=== PATIENT | female | born 1980 | race Caucasian/White ===

== ENCOUNTER → 2020-10-19 | Outpatient (CLI) | payer OTHER ==
[2020-10-19 19:02] LABS: HGB 12.8 g/dL (12.0-15.0); MCH 29.3 pg (27.0-32.0); MCHC 32.8 g/dL (32.0-37.0); MCV 89.2 fL (80.0-97.0); Mean Platelet Volume 10.6 fL (9.5-12.2); Platelet Count 444 X 10*3/uL (140-440); RBC 4.37 X 10*6/uL (4.10-5.20); RDW 12.2 % (11.5-14.5); WBC 8.58 X 10*3/uL (4.50-10.00)
[2020-10-19 19:27] LABS: Folate, Serum 5.5 ng/mL
[2020-10-19 20:01] LABS: % Iron Saturation 8.2 (12.00-45.00); African American GFR (CKD) 126.5 (60.0-200.0); Albumin 4.7 g/dL (3.80-4.90); Albumin/Globulin Ratio 1.88 (1.60-3.17); Anion Gap 6.8 mmol/L (4.00-12.00); BUN/Creat Ratio 12.86 Ratio (12.00-20.00); Calcium 9.1 mg/dL (8.7-10.3); Carbon Dioxide 27.2 mmol/L (21.6-31.8); Chol/HDL Ratio 3.52; Ferritin 6.4 ng/mL (10.0-291.0); Globulin 2.5 g/dL (1.6-3.3); LDL Cholesterol,Calculated 83.4 mg/dL (0.0-131.0); Magnesium 1.8 mg/dL (1.5-2.4); Non-African American GFR(CKD) 109.1 (60.0-200.0); Phosphorus 3.4 mg/dL (2.4-5.1); Potassium 3.7 mmol/L (3.5-5.5); Total Bilirubin 0.3 mg/dL (0.3-1.2); Total Protein 7.2 g/dL (6.2-8.2); VLDL Calculation 27.6 mg/dL (5.00-40.00)
[2020-10-19 20:51] LABS: Hemoglobin A1C 5.2 % (4.0-6.0)
[2020-10-19 22:44] LABS: INR 0.96 (0.90-1.11); Partial Thromboplastin Time 25.5 sec (23.5-31.0); Prothrombin Time 10.5 sec (9.9-11.9)
[2020-10-20 14:08] LABS: Zinc, Serum 72 ug/dL (60-130)
[2020-10-20 14:11] LABS: Vitamin A 26 ug/dL (38-106)
[2020-10-21 07:14] LABS: Vit B1(Thiamine) 69 ug/L (38-122)
== END | disposition home or self-care (01) ==
LOC: LABWHC1 12:18
PROVIDERS: ATTEND Surgery Plastic and Reconstructive Surgery
DX: E55.9 Vitamin D deficiency, unspecified (principal); E66.01 Morbid (severe) obesity due to excess calories; E21.1 Secondary hyperparathyroidism, not elsewhere classified; E89.1 Postprocedural hypoinsulinemia; D50.9 Iron deficiency anemia, unspecified; N19 Unspecified kidney failure; K74.1 Hepatic sclerosis; K90.89 Other intestinal malabsorption; K50.90 Crohn's disease, unspecified, without complications
CPT/HCPCS: 36415; 80053; 80061; 82306; 82525; 82607; 82728; 82746; 83036; 83540; 83550; 83735; 83970; 84100; 84134; 84255; 84425; 84443; 84590; 84630; 85027; 85610; 85730

== ENCOUNTER → 2021-10-04 | Outpatient (CLI) | payer OTHER ==
--- NOTE | 2021-10-04 13:00 | XR ---
EXAMINATION TYPE: XR chest 2V DATE OF EXAM: 10/04/2021 COMPARISON: NONE HISTORY: Cough and pain on inspiration. TECHNIQUE: Frontal and lateral views of the chest are obtained. FINDINGS: There is no suspicious focal air space opacity, pleural effusion, or pneumothorax seen. T he cardiac silhouette size is within normal limits. The osseous structures are intact. IMPRESSION: No acute process.
== END | disposition home or self-care (01) ==
LOC: RADXRMAIN 12:32
PROVIDERS: ATTEND Family Medicine
DX: R05.3 Chronic cough (principal); R07.1 Chest pain on breathing
CPT/HCPCS: 71046

== ENCOUNTER → 2022-11-29 | Outpatient (CLI) | payer BC, OTHER ==
[2022-11-29 14:28] LABS: Basophils # (A) 0.04 X 10*3/uL (0.00-0.10); Basophils % (A) 0.5 %; Eosinophils # (A) 0.08 X 10*3/uL (0.04-0.35); Eosinophils % (A) 1.1 %; HCT 40.4 % (37.2-46.3); HGB 12.5 g/dL (12.0-15.0); Immature Grans, Automated 0.3 %; Lymphocytes # (A) 1.75 X 10*3/uL (0.90-5.00); Lymphocytes % (A) 23.2 %; MCH 26.4 pg (27.0-32.0); MCHC 30.9 g/dL (32.0-37.0); MCV 85.4 fL (80.0-97.0); Mean Platelet Volume 10.2 fL (9.5-12.2); Monocytes # (A) 0.67 X 10*3/uL (0.20-1.00); Monocytes % (A) 8.9 %; NRBC Per 100 WBC 0 /100 WBCS (0.0-0.0); Neutrophils # (A) 4.97 X 10*3/uL (1.80-7.70); Platelet Count 445 X 10*3/uL (140-440); RBC 4.73 X 10*6/uL (4.10-5.20); RDW 12.8 % (11.5-14.5); WBC 7.53 X 10*3/uL (4.50-10.00)
== END | disposition home or self-care (01) ==
LOC: LABPAT 10:10
PROVIDERS: ATTEND Obstetrics & Gynecology
DX: Z01.812 Encounter for preprocedural laboratory examination (principal); N92.0 Excessive and frequent menstruation with regular cycle; N94.6 Dysmenorrhea, unspecified
CPT/HCPCS: 85025

== ENCOUNTER 2022-12-18 06:19 | Day surgery (SDC) | payer BC, OTHER ==
[2022-12-12 12:50] VITALS: BMI 38.0
--- NOTE | 2022-12-14 10:41 | HP ---
HISTORY AND PHYSICAL H and P for surgery on December 18. HISTORY OF PRESENT ILLNESS: This is a 42-year-old, 3, para 2-0-1-2, whose partner has had a vasectomy. The patient presents with irregular menses occurring every 2 to 6 weeks apart lasting up to 7 days, heavy with clots. She has had an office endometrial ablation, which is revealing normal tissue. She is declining option of IUD or hormonal therapy and is requesting hysteroscopy and NovaSure endometrial ablation. PAST MEDICAL HISTORY: Significant for anemia, chronic constipation, fibromyalgia, malabsorption syndrome, menometrorrhagia, ovarian cysts, salivary gland calcifications, and vitamin D deficiency. PAST SURGICAL HISTORY: Adenoidectomy, cholecystectomy, gastric bypass, and excision of submandibular gland, benign. CURRENT MEDICATIONS: 1. Amitriptyline 25 mg pills orally at bedtime. 2. Vitamin B12 injections monthly. 3. Drisdol 50,000-unit capsules once weekly. 4. 45 mg iron extended-release tablet once daily. 5. Linzess 72 mcg tablets 30 minutes before first meal of the day. 6. Lubiprostone 8 mcg capsules twice a day with food. ALLERGIES: Include clindamycin and Levaquin, allergies unspecified. FAMILY HISTORY: Significant for diabetes, emphysema, heart disease, hydronephrosis, hypercholesterolemia, hypertension, obesity, and osteoporosis. REPRODUCTIVE HISTORY: Significant for 2 full-term vaginal deliveries, 1 spontaneous miscarriage. Her has had a vasectomy. SOCIAL HISTORY: The patient is a teacher in the [employer]. She has never been a smoker and denies alcohol or drug use. REVIEW OF SYSTEMS: Otherwise, negative. Specified as above. PHYSICAL EXAMINATION: GENERAL: This is a pleasant white female. HEENT: Negative. Good dentition. NECK: No thyromegaly. Trachea midline. CHEST: Clear to auscultation in all ramos anteriorly and posteriorly. BREASTS: Bilaterally symmetric to inspection. No skin dimpling, nipple discharge, or axillary adenopathy. CARDIAC: Reveals regular rate and rhythm with no murmur, click, or rub. VITAL SIGNS: The patient is 214 pounds, 5 feet 3 inches, BMI 37.6. Blood pressure 130/90. ABDOMEN: Moderately obese. Soft. No obvious organosplenomegaly. PELVIC: Multiparous. Pap smear up-to-date and normal. Uterus is anteverted, anteflexed, smooth, mobile, nontender. Adnexa are negative to palpation bilaterally, small and mobile, no cysts or masses. Anus is within normal limits, no hemorrhoids. Good sphincter tone. FIT negative stool. SKIN: Reveals no rashes, lesions, or areas of discoloration. NEUROLOGIC: The patient is alert and oriented grossly x3 with good judgment and insight. IMPRESSION: Menorrhagia and dysmenorrhea, requesting NovaSure ablation, declining intrauterine device use or control pills. PLAN: We will proceed with hysteroscopy, NovaSure endometrial ablation. The risks and benefits of surgery including the risks of anesthesia, bleeding, perforation or damage to the cervix or uterus or bladder all discussed. Risks of anesthesia, aspiration, nerve damage, even remotely all discussed. Questions all answered. Pamphlets given to the patient for her thorough review. We will proceed with NovaSure endometrial ablation along with hysteroscopy at [facility] on 12/18/2022. MMODL / IJN: [id number] /
[~2022-12-18 06:19] MED LIST: Pre Op ABX Message 1 EACH MISC MISCELLANE ONE
[2022-12-18] MEDS ORDERED: ONDANSETRON 4 MG/2 ML VIAL IVP ONE (06:37)
[2022-12-18] MEDS ORDERED: SCOPOLAMINE 1 MG/72 HR PATCH TRANSDERM ONE (06:37)
[2022-12-18] MEDS ORDERED: DEXAMETHASONE SOD PHOSPHATE 4 MG/ML 1 ML VIAL IV ONE (06:37)
[2022-12-18] MEDS ORDERED: MIDAZOLAM 2 MG/2 ML VIAL IV PRN (06:37)
[2022-12-18 06:51] VITALS: RESP 16
[2022-12-18] MEDS: LACTATED RINGERS 1,000 ML IV SCH ×2 (07:02→07:22)
[2022-12-18] MEDS ORDERED: DEXAMETHASONE SOD PHOSPHATE 4 MG/ML 1 ML VIAL IVP ONE (07:07)
[2022-12-18] MEDS ORDERED: PROPOFOL 10 MG/ML 20 ML VIAL IV ONE (07:18)
[2022-12-18] MEDS ORDERED: KETOROLAC 15 MG/ML 1 ML VIAL ONE (07:18)
[2022-12-18] MEDS ORDERED: fentaNYL (PF) 50 MCG/ML 2 ML AMP ONE (07:18)
[2022-12-18] MEDS ORDERED: MIDAZOLAM 2 MG/2 ML VIAL ONE (07:18)
[2022-12-18] MEDS ORDERED: LIDOCAINE 2% INJ 20 MG/ML (2 ML VIAL) ONE (07:18)
--- NOTE | 2022-12-18 07:53 | P.OP ---
Date of Procedure: 12/18/22 Preoperative Diagnosis: Menorrhagia, dysmenorrhea Postoperative Diagnosis: Same, essentially negative-appearing endometrial cavity Procedure(s) Performed: Hysteroscopy, NovaSure endometrial ablation Anesthesia: NUBIAA Surgeon: Suha Lema Estimated Blood Loss (ml): 10 IV fluids (ml): 350 Urine output (ml): 50 Pathology: none sent Condition: stable Operative Findings: Negative appearing endometrial cavity, no polyps fibroids septa or defects. Description of Procedure: Patient is brought to the operating suite where a general anesthetic is administered without difficulty. She's placed in the dorsal lithotomy position. The cervix, vagina, perineal bodies are all prepped and draped in the usual sterile fashion. Urine hCG is negative. The appropriate timeout is performed to assure proper patient and procedural identification. Bladder is drained for approximately 50 mL of clear yellow urine. Weighted speculum was placed into the vagina. Anterior lip of the cervix is grasped with an Allis clamp. Uterus sounds to a depth of 8 cm in the anteverted position. The cervix is gently and systematically dilated using Hanks dilators. Hysteroscope was placed and fluid is infused. Inspection of the cavity reveals it to contain abundant proliferative-type tissue, no polyps, fibroids, septa, or defects. Hysteroscope was removed. The NovaSure wand is placed and seated properly. Uterine length of 6.0 cm, width 2.7 cm is calibrated. The machine is enabled. For 52 seconds and a power of 89 W. the procedure is carried out. When the machine turns off the wand is reduced and removed. Hysteroscope was once again placed and the cavity appears to be uniformly blanched. All sponge needle and enhancement counts are correct. Patient is brought back to the recovery room in very good condition with stable vital signs including blood pressure 124/72, pulse 73, 100% O2 saturation. Toradol is given prior to leaving the operative suite. She will follow-up with me in the office in 2 weeks.
[2022-12-18 07:56] VITALS: TEMP 97.3
[2022-12-18] MEDS: HYDROmorphone 0.5 MG/0.5 ML SYRINGE IVP PRN ×3 (08:04→08:39)
[2022-12-18] MEDS ORDERED: ACETAMINOPHEN TAB 500 MG TAB ONE (09:22)
[2022-12-18 09:34] VITALS: BP 117/76; PULSE 96
== END 2022-12-18 09:59 | disposition home or self-care (01) ==
LOC: OR 06:19
PROVIDERS: ATTEND Obstetrics & Gynecology
DX: N92.0 Excessive and frequent menstruation with regular cycle (principal); N94.6 Dysmenorrhea, unspecified; D64.9 Anemia, unspecified; M79.7 Fibromyalgia; E55.9 Vitamin D deficiency, unspecified; K90.9 Intestinal malabsorption, unspecified; Z98.0 Intestinal bypass and anastomosis status; Z79.899 Other long term (current) drug therapy; Z88.1 Allergy status to other antibiotic agents; Z83.3 Family history of diabetes mellitus; Z82.49 Family history of ischemic heart disease and other diseases of the circulatory system; Z82.62 Family history of osteoporosis; Z83.49 Family history of other endocrine, nutritional and metabolic diseases; Z90.49 Acquired absence of other specified parts of digestive tract
CPT/HCPCS: 81025; 58563; J2250; J1100; J2405; J3010; J1885; J2704; J1170; J2001

== ENCOUNTER → 2023-09-29 | Outpatient (CLI) | payer BC, OTHER ==
[2023-09-29 13:06] LABS: Basophils # (A) 0.04 X 10*3/uL (0.00-0.10); Basophils % (A) 0.8 %; Eosinophils # (A) 0.09 X 10*3/uL (0.04-0.35); Eosinophils % (A) 1.7 %; HCT 38.7 % (37.2-46.3); HGB 12.2 g/dL (12.0-15.0); Lymphocytes # (A) 0.99 X 10*3/uL (0.90-5.00); Lymphocytes % (A) 18.6 %; MCH 26.1 pg (27.0-32.0); MCHC 31.5 g/dL (32.0-37.0); MCV 82.9 FL (80.0-97.0); Mean Platelet Volume 10.4 FL (9.5-12.2); Monocytes # (A) 0.37 X 10*3/uL (0.20-1.00); NRBC Per 100 WBC 0 X 10*3/uL (0.00-0.01); Neutrophils # (A) 3.81 X 10*3/uL (1.80-7.70); Neutrophils % (A) 71.7 %; Platelet Count 436 X 10*3/uL (140-440); RBC 4.67 X 10*6/uL (4.10-5.20); WBC 5.31 X 10*3/uL (4.50-10.00)
[2023-09-29 13:38] LABS: Chol/HDL Ratio 3.25 Ratio
[2023-09-29 13:39] LABS: ALT 12 U/L (8-44); AST 15 U/L (13-35); Albumin/Globulin Ratio 1.38 Ratio (1.60-3.17); Alkaline Phosphatase 145 U/L (41-126); BUN/Creat Ratio 8.57 Ratio (12.00-20.00); Calcium 9.3 mg/dL (8.7-10.3); Carbon Dioxide 23.1 mmol/L (21.6-31.8); Chloride 105 mmol/L (96-109); Ferritin 12.7 ng/mL (10.0-291.0); Globulin 2.9 g/dL (1.6-3.3); Glucose 98 mg/dL (70-110); LDL Cholesterol,Calculated 98.9 mg/dL (0.0-131.0); Potassium 4.6 mmol/L (3.5-5.5); Sodium 140 mmol/L (135-145); T4, Free (Free Thyroxine) 0.87 ng/dL (0.80-1.80); Total Bilirubin 0.6 mg/dL (0.3-1.2); Total Protein 6.9 g/dL (6.2-8.2)
[2023-09-29 14:00] LABS: Insulin Level 6.8 mIU/mL (3.0-25.0)
== END | disposition home or self-care (01) ==
LOC: LABWHC1 09:05
PROVIDERS: ATTEND Family Medicine
DX: Z00.00 Encounter for general adult medical examination without abnormal findings (principal); R63.5 Abnormal weight gain; R53.82 Chronic fatigue, unspecified; Z98.84 Bariatric surgery status
CPT/HCPCS: 36415; 80053; 80061; 82306; 82607; 82672; 82728; 82746; 83036; 83525; 84403; 84439; 84443; 85025; 86800

== ENCOUNTER → 2023-10-11 | Outpatient (CLI) | payer BC, OTHER ==
--- NOTE | 2023-10-15 08:30 | MM ---
Reason for Exam: Screening (asymptomatic). Last screening mammogram was performed 12 month(s) ago. Patient History: Menarche at age 15. First Full-Term at age 30. Risk Values: Peggy 5 year model risk: 0.7%. NCI Lifetime model risk: 10.0%. Prior Study Comparison: 10/06/2022 Bilateral MG 3D screening mammo w/cad, [facility]. Tissue Density: There are scattered fibroglandular densities. Findings: Analyzed By CAD. There is no suspicious group of microcalcifications or new suspicious mass. Overall Assessment: Negative, BI-RAD 1 Management: Screening Mammogram of both breasts in [address] [facility] will attempt to contact patient to return for supplemental views and ultrasound if indicated. Patient should continue monthly self-breast exams. A clinical breast exam by your physician is recommended on an annual basis. This exam should not preclude additional follow-up of suspicious palpable abnormalities. Note on Peggy scores and lifetime risk: 1. A Peggy score greater than 3% is considered moderate risk. If this is the case, consider specialist referral to assess eligibility for a risk reducing agent. 2. If overall lifetime risk for the development of breast cancer is 20% or higher, the patient may qualify for future screening with alternating mammogram and breast MRI. Electronically signed and approved by: Ang Rodriguez DO
== END | disposition home or self-care (01) ==
LOC: RADMAMWWP 16:26
PROVIDERS: ATTEND Family Medicine
DX: Z12.31 Encounter for screening mammogram for malignant neoplasm of breast (principal)
CPT/HCPCS: 77063; 77067

== ENCOUNTER 2023-10-27 20:41 | Emergency (ER) | payer BC, OTHER ==
[2023-10-27 21:02] VITALS: TEMP 98.7
--- NOTE | 2023-10-27 21:14 | ED ---
Back Pain HPI - General Chief Complaint: Back Pain/Injury Stated Complaint: RIGHT LOWER BACK PAIN Time Seen by Provider: 10/27/23 20:58 Source: patient Limitations: no limitations - History of Present Illness Initial Comments: 43-year-old female presenting with chief complaint of lower back pain. Pain started yesterday, patient thought that she had "tweaked her back". She had no distinct injury or trauma. She states that this evening she had worsening pain. She admits to radiation down the leg. Pain is affected by position and worse with movement or weightbearing. no loss of bowel or bladder control or saddle paresthesia. She does admit to some nausea when the pain is at its worst. No vomiting. No fevers. No dysuria, hematuria, urgency, frequency, abdominal pain . No chest pain or difficulty breathing. She has tried taking meloxicam once today. - Related Data Home Medications Medication Instructions Recorded Confirmed Amitriptyline HCl 25 mg PO HS 12/12/22 10/25/23 Cyanocobalamin [Vitamin B-12 1,000 mcg SQ QMONTHLY 12/12/22 10/25/23 Injection] DULoxetine HCL [Cymbalta] 20 mg PO HS 12/12/22 10/25/23 Previous Rx's Medication Instructions Recorded Cyclobenzaprine [Flexeril] 10 mg PO TID PRN #15 tab 10/27/23 Allergies Allergy/AdvReac Type Severity Reaction Status Date / Time clindamycin Allergy Dyspnea Verified 10/27/23 20:50 levofloxacin [From Levaquin] Allergy Rash/Hives Verified 10/27/23 20:50 Review of Systems ROS Statement: Those systems with pertinent positive or pertinent negative responses have been documented in the HPI. ROS Other: All systems not noted in ROS Statement are negative. Past Medical History Past Medical History: Diabetes Mellitus, Fibromyalgia Additional Past Medical History / Comment(s): recent tooth infection, antibiotic treatment finished 10/18/23 History of Any Multi-Drug Resistant Organisms: None Reported Past Surgical History: Appendectomy, Bariatric Surgery, Cholecystectomy Additional Past Surgical History / Comment(s): Gastric Bypass 2008, bilateral submandibular glands removed, uterine repair. Past Anesthesia/Blood Transfusion Reactions: No Reported Reaction Past Psychological History: No Psychological Hx Reported Smoking Status: Never smoker Past Alcohol Use History: None Reported Past Drug Use History: None Reported - Past Family History Father Family Medical History: Deep Vein Thrombosis (DVT) General Exam Limitations: no limitations General appearance: alert, in no apparent distress Head exam: Present: atraumatic, normocephalic Eye exam: Present: normal appearance Neck exam: Present: normal inspection Respiratory exam: Absent: respiratory distress Back exam: Present: normal inspection, muscle spasm Neurological exam: Present: alert, oriented X3 Psychiatric exam: Present: normal affect, normal mood Skin exam: Present: warm, dry Course Vital Signs 10/27/23 10/27/23 20:49 23:33 Temperature 98.7 F Pulse Rate 101 H 91 Respiratory 20 18 Rate Blood Pressure 165/108 140/80 O2 Sat by Pulse 100 99 Oximetry Medical Decision Making - Medical Decision Making Was pt. sent in by a medical professional or institution ([facility], SAP BI ARCHITECT, urgent care, hospital, or long-term...) When possible be specific @ -No Did you speak to anyone other than the patient for history (EMS, parent, family, police, friend...)? What history was obtained from this source @ -No Did you review nursing and triage notes (agree or disagree)? Why? @ -I reviewed and agree with nursing and triage notes Were old charts reviewed (outside hosp., previous admission, EMS record, old EKG, old radiological studies, urgent care reports/EKG's, long-term records)? Report findings @ -No old charts were reviewed Differential Diagnosis (chest pain, altered mental status, abdominal pain women, abdominal pain men, vaginal bleeding, weakness, fever, dyspnea, syncope, headache, dizziness, GI bleed, back pain, seizure, CVA, palpatations, mental health, musculoskeletal)? @ - MDM Differential Back Pain: Strain, zoster, cauda equina syndrome, epidural abscess, vertebral osteomyelitis, discitis, fracture, subluxation, disc herniation, DJD, spinal stenosis, dissection, AAA, pancreatitis, peptic ulcer disease, pyelonephritis, kidney stone this is not meant to be an all-inclusive list. EKG interpreted by me (3pts min.). @ -As above X-rays interpreted by me (1pt min.). @ -None done CT interpreted by me (1pt min.). @ -None done U/S interpreted by me (1pt. min.). @ -None done What testing was considered but not performed or refused? (CT, X-rays, U/S, labs)? Why? @ -X-ray consider, however there was no injury or trauma, making possibility of an acute osseous process unlikely What meds were considered but not given or refused? Why? @ -None Did you discuss the management of the patient with other professionals (professionals i.e. , PA, SAP BI ARCHITECT, lab, RT, psych nurse, social media specialist, yard cleaner, teacher, postal sorting officer, manager of change)? Give summary @ -No Was smoking cessation discussed for >3mins.? @ -No Was critical care preformed (if so, how long)? @ -No Were there social determinants of health that impacted care today? How? (Homelessness, low income, unemployed, alcoholism, drug addiction, transportation, low edu. Level, literacy, decrease access to med. care, [place] [facility], rehab)? @ -No Was there de-escalation of care discussed even if they declined (Discuss DNR or withdrawal of care, Hospice)? DNR status @ -No What co-morbidities impacted this encounter? (DM, HTN, Smoking, COPD, CAD, Cancer, CVA, ARF, Chemo, Hep., AIDS, mental health diagnosis, sleep apnea, morbid obesity)? @ -None Was patient admitted / discharged? Hospital course, mention meds given and route, prescriptions, significant lab abnormalities, going to OR and other pertinent info. @ -43-year-old female presenting with chief complaint of lower back pain. No red flag features. History and physical exam are conducted. Patient is treated with Toradol, Decadron, Norflex, and lidocaine patch. On reassessment she reports continued pain. She is given 1 mg Dilaudid, on reassessment she reports that her pain is significantly improved. She would like to be discharged home. Follow-up with PCP. Report back to ER with any new or worsening symptoms. Discussed return parameters and answered all questions. Patient conveyed verbal understanding and agreed to the plan. I discussed this case in detail with my attending Dr. Malik Undiagnosed new problem with uncertain prognosis? @ -No Drug Therapy requiring intensive monitoring for toxicity (Heparin, Nitro, Insulin, Cardizem)? @ -No Were any procedures done? @ -No Diagnosis/symptom? @ -Low back pain Acute, or Chronic, or Acute on Chronic? @ -Acute Uncomplicated (without systemic symptoms) or Complicated (systemic symptoms)? @ -Uncomplicated Side effects of treatment? @ -No Exacerbation, Progression, or Severe Exacerbation? @ -No Poses a threat to life or bodily function? How? (Chest pain, [place], [place], pneumonia, PE, COPD, DKA, ARF, appy, cholecystitis, CVA, Diverticulitis, Homicidal, Suicidal, threat to staff... and all critical care pts) @ -No Disposition Clinical Impression: Mechanical back pain Disposition: HOME SELF-CARE Condition: Good Instructions (If sedation given, give patient instructions): Acute Low Back Pain (ED) Additional Instructions: Follow-up with PCP. Report back to ER with any new or worsening symptoms. Take Motrin and Tylenol as needed for pain control. Take cyclobenzaprine as prescribed, may cause drowsiness so do not take before driving or operating heavy machinery Prescriptions: Cyclobenzaprine [Flexeril] 10 mg PO TID PRN #15 tab PRN Reason: spasms Is patient prescribed a controlled substance at d/c from ED?: No Referrals: Aissatou Dorsey NPC [REFERRING] - 1-2 days Time of Disposition: 23:53
[2023-10-27] MEDS: ORPHENADRINE 30 MG/ML 2 ML VIAL IM STA (21:38)
[2023-10-27] MEDS: LIDOCAINE 4% PATCH TOPICAL ONE (21:41)
[2023-10-27] MEDS: KETOROLAC 15 MG/ML 1 ML VIAL IM STA (21:43)
[2023-10-27] MEDS: DEXAMETHASONE SOD PHOSPHATE 10 MG/ML 1 ML VIAL IM STA (21:45)
[2023-10-27] MEDS: HYDROmorphone 1 MG/ML 1 ML SYRINGE IM STA (23:10)
[2023-10-28 00:16] VITALS: BP 140/80; PULSE 91; RESP 18
== END 2023-10-28 00:06 | disposition home or self-care (01) ==
LOC: EC 20:41
DX: M54.50 Low back pain, unspecified (principal); E11.9 Type 2 diabetes mellitus without complications; Z88.1 Allergy status to other antibiotic agents; Z88.8 Allergy status to other drugs, medicaments and biological substances; Z90.49 Acquired absence of other specified parts of digestive tract
CPT/HCPCS: 99283; 96372 ×4; J1100; J2360; J1170; J1885

== ENCOUNTER → 2023-10-31 | Outpatient (CLI) | payer BC, OTHER ==
--- NOTE | 2023-10-31 16:48 | XR ---
EXAMINATION TYPE: XR lumbar spine 2 or 3V DATE OF EXAM: 10/31/2023 COMPARISON: None HISTORY: Pain, lumbago TECHNIQUE: 3 view lumbar spine FINDINGS: There are 5 lumbar-type vertebral bodies. Pedicles are intact. Disc heights are preserved. Vertebral body heights are preserved. Alignment is normal. IMPRESSION: 1. Unremarkable 3 view lumbar spine. 2. MRI can be performed if additional evaluation for radicular symptoms would be of benefit.
== END | disposition home or self-care (01) ==
LOC: RADXRMAIN 15:19
PROVIDERS: ATTEND Nurse Practitioner Family
DX: M54.41 Lumbago with sciatica, right side (principal)
CPT/HCPCS: 72100

== ENCOUNTER → 2023-11-22 | Outpatient (CLI) | payer BC, OTHER ==
--- NOTE | 2023-11-23 04:20 | MR ---
EXAMINATION TYPE: MR lumbar spine wo con DATE OF EXAM: 11/22/2023 COMPARISON: Outside lumbar spine x-ray October 31, 2023 HISTORY: Low back pain, right sided radiculopathy TECHNIQUE: Multiplanar, multisequence imaging of the lumbar spine is performed without IV contrast. FINDINGS: Sagittal images of the lumbar spine show vertebral body heights and alignment to appear sat isfactory. There is disc desiccation at L4-L5 level. The intervertebral discs otherwise demonstrate n ormal heights and hydration. The conus medullaris is normal in position and signal ending superior L 1 level. The bone marrow signal intensity is within normal limits. Axial images at L4-L5 level shows a tiny central disc protrusion and right paracentral annular tear b ut spinal canal is preserved and bilateral neural foramina are patent. Remainder lumbar levels within normal limits. Paraspinal muscle bulk is maintained. IMPRESSION: Early degenerative changes at L4-L5 level as detailed above. No significant findings to a ccount for patient's right-sided radiculopathy type symptoms.
== END | disposition home or self-care (01) ==
LOC: RADMRIMAIN 16:40
PROVIDERS: ATTEND Family Medicine
DX: M47.26 Other spondylosis with radiculopathy, lumbar region (principal)
CPT/HCPCS: 72148

== ENCOUNTER 2023-12-04 08:45 | Day surgery (SDC) | payer BC, OTHER ==
[~2023-12-04 08:45] MED LIST changes: +LACTATED RINGERS 1,000 ML IV SCH; -Pre Op ABX Message 1 EACH MISC MISCELLANE ONE
[2023-12-04 09:25] VITALS: TEMP 98.7
[2023-12-04] MEDS: IV FLUID CONTINUATION 1,000 ML IV ONE (09:29)
[2023-12-04 09:32] LABS: Glucose,Whole Blood 91 mg/dL (70-110)
[2023-12-04] MEDS ORDERED: PROPOFOL 10 MG/ML 20 ML VIAL IV ONE (10:00)
--- NOTE | 2023-12-04 10:02 | P.GSHP ---
History of Present Illness H&P Date: 12/04/23 Chief Complaint: GI bleed 43-year-old female describes intermittent bright red blood and maroon-colored stools with some mucus over the last few years. Increasing over the last few months. No real pain. No family history of inflammatory bowel disease. No family history of colon cancer. Patient does have family history of diverticulitis. Past Medical History Past Medical History: Diabetes Mellitus, Fibromyalgia Additional Past Medical History / Comment(s): pre diabetic. just completed course of metformin for 30 days. IBS . some blood in stools ( dark and bright). arthritis to hips. History of Any Multi-Drug Resistant Organisms: None Reported Past Surgical History: Appendectomy, Bariatric Surgery, Cholecystectomy, Uterine Ablation Additional Past Surgical History / Comment(s): Gastric Bypass 2008, bilateral submandibular glands removed, uterine repair. Past Anesthesia/Blood Transfusion Reactions: No Reported Reaction Smoking Status: Never smoker - Past Family History Father Family Medical History: Deep Vein Thrombosis (DVT) Additional Family Medical History / Comment(s): diverticulitis. Mother Additional Family Medical History / Comment(s): diverticulitis- ruptured. Medications and Allergies Home Medications Medication Instructions Recorded Confirmed Type Amitriptyline HCl 25 mg PO HS 12/12/22 12/04/23 History Cyanocobalamin [Vitamin B-12 1,000 mcg SQ QMONTHLY 12/12/22 12/04/23 History Injection] DULoxetine HCL [Cymbalta] 20 mg PO HS 12/12/22 12/04/23 History Linaclotide [Linzess] 72 mcg PO DAILY 11/30/23 12/04/23 History Meloxicam [Mobic] 15 mg PO DAILY PRN 11/30/23 12/04/23 History Unk Motrin 1 tab PO DIRECTED PRN 11/30/23 12/04/23 History Unk Multi Vitamin 1 tab PO DAILY 11/30/23 12/04/23 History metFORMIN HCL [Metformin HCl] 500 mg PO AC-SUPPER 11/30/23 12/04/23 History Allergies Allergy/AdvReac Type Severity Reaction Status Date / Time clindamycin Allergy Dyspnea Verified 12/04/23 09:10 levofloxacin [From Levaquin] Allergy Rash/Hives Verified 12/04/23 09:10 Surgical - Exam Vital Signs Temp Pulse Resp BP Pulse Ox 98.7 F 83 17 121/73 100 12/04/23 09:10 12/04/23 09:10 12/04/23 09:10 12/04/23 09:10 12/04/23 09:10 Physical exam: General: Well-developed, well-nourished HEENT: Normocephalic, sclerae nonicteric Abdomen: Nontender, nondistended Extremities: No edema Neuro: Alert and oriented Assessment and Plan (1) GI bleed Narrative/Plan: Will proceed with colonoscopy at this time. Current Visit: Yes Status: Acute Code(s): K92.2 - GASTROINTESTINAL HEMORRHAGE, UNSPECIFIED SNOMED Code(s): 58722922
--- NOTE | 2023-12-04 10:19 | P.PCN ---
Date of Procedure: 12/04/23 Procedure(s) Performed: PREOPERATIVE DIAGNOSIS: GI bleeding POSTOPERATIVE DIAGNOSIS: Normal exam PROCEDURE: Colonoscopy ANESTHESIA: MAC SURGEON: Supa Erickson M.D. SPECIMENS: None ENDOSCOPIC PROCEDURE: The patient was placed on the endoscopy table in the left decubitus position. The Olympus colonoscope was inserted into the anus and passed under direct visualization to the base of the cecum. The appendiceal orifice was visualized. From that point the scope was slowly withdrawn inspecting all surfaces carefully. There were no neoplastic inflammatory or polypoid lesions throughout the cecum, ascending, transverse, descending, sigmoid and rectum. There was no visible diverticulosis noted. Retroflexion at the anus was normal. Digital rectal examination was normal. The patient was taken to the recovery room in stable condition per anesthesia guidelines. RECOMMENDATIONS: No signs of bleeding at this time. Resume diet. Follow-up colonoscopy age 51.
[2023-12-04 10:44] VITALS: BP 114/78; PULSE 81; RESP 18
== END 2023-12-04 11:00 | disposition home or self-care (01) ==
LOC: ORWHC2ENDO 08:45
PROVIDERS: ATTEND Surgery
DX: K92.1 Melena (principal); Z83.79 Family history of other diseases of the digestive system; E11.9 Type 2 diabetes mellitus without complications; M79.7 Fibromyalgia; G89.29 Other chronic pain; Z90.49 Acquired absence of other specified parts of digestive tract; Z98.84 Bariatric surgery status; Z88.1 Allergy status to other antibiotic agents; Z79.899 Other long term (current) drug therapy; Z79.84 Long term (current) use of oral hypoglycemic drugs
CPT/HCPCS: 81025; 45378; J2704

== ENCOUNTER → 2024-02-06 | Outpatient (CLI) | payer BC, OTHER ==
[2024-02-06 16:44] VITALS: BP 120/86; PULSE 103; RESP 16; TEMP 98.5; BMI 41.4
--- NOTE | 2024-02-06 17:20 | P.HPBAR ---
Bariatric H&P - History & Physicial H&P Date: 02/06/24 History & Physicial: Visit/CC: Transfer of Care Patient initial contact: Initial weight: 155.582 kg Initial weight in pounds: 343.00 Height: 5 ft 3 in Initial BMI: 60.7 Last weight: Current weight: 106.141 kg Current weight in pounds: 234.00 Current BMI: 41.4 [place] body weight (based on NIH guidelines): 52.163 kg Excess body weight loss: 47.8% The patient is a 43 year-old F who presents for Bariatric Assessment. She is now prediabetic. She is on Metformin. She was on mobic. Her highest weight is 343 pounds. Lowest 140 pounds. 200 pounds weight loss for gastric bypass in 1 year. She has gained 100 pounds. She gained weight with her daughter. BMI 60.7. Get labs. Food get stuck more than 3 years. She has epigastric pain. Food journal advised. Gallbladder is gone! Past Medical History Past Medical History: Diabetes Mellitus, Fibromyalgia Additional Past Medical History / Comment(s): recent tooth infection, antibiotic treatment finished 10/18/23 History of Any Multi-Drug Resistant Organisms: None Reported Past Surgical History: Appendectomy, Bariatric Surgery, Cholecystectomy Additional Past Surgical History / Comment(s): Gastric Bypass 2008, bilateral submandibular glands removed, uterine repair. Past Anesthesia/Blood Transfusion Reactions: No Reported Reaction Past Psychological History: No Psychological Hx Reported Smoking Status: Never smoker Past Alcohol Use History: None Reported Past Drug Use History: None Reported - Past Family History Father Family Medical History: Deep Vein Thrombosis (DVT) Surgical - Exam Vital Signs Temp Pulse Resp BP 98.5 F 103 H 16 120/86 02/06/24 16:41 02/06/24 16:41 02/06/24 16:41 02/06/24 16:41 Bariatric Checklist Checklist: Plan: Checklist: EGD: 1. Hiatal hernia: 2. H. Pylori: HgbA1c: Vitamin D: Smoking: Primary care physician referral: Dr. Dorsey Psychiatry clearance: Cardiology clearance: Sleep study: Diet journal: VTE risk score: VTE risk level: Rehab needs at discharge:
== END ==
LOC: BARWHC3 15:44
PROVIDERS: ATTEND Surgery Plastic and Reconstructive Surgery
DX: E66.01 Morbid (severe) obesity due to excess calories (principal); Z98.84 Bariatric surgery status; Z90.3 Acquired absence of stomach [part of]; R73.03 Prediabetes; R10.9 Unspecified abdominal pain; Z79.84 Long term (current) use of oral hypoglycemic drugs; Z88.1 Allergy status to other antibiotic agents; Z68.42 Body mass index [BMI] 45.0-49.9, adult
CPT/HCPCS: 99202

== ENCOUNTER → 2024-02-15 | Outpatient (CLI) | payer BC, OTHER ==
[2024-02-15 08:39] LABS: INR 0.9 (<1.2); Partial Thromboplastin Time 23.5 sec (22.0-30.0)
[2024-02-15 10:30] LABS: HCT 40.1 % (37.2-46.3); HGB 13.4 g/dL (12.0-15.0); MCH 29.8 pg (27.0-32.0); MCHC 33.4 g/dL (32.0-37.0); MCV 89.1 FL (80.0-97.0); Mean Platelet Volume 10.2 FL (9.5-12.2); NRBC Per 100 WBC 0 X 10*3/uL (0.00-0.01); Platelet Count 371 X 10*3/uL (140-440); RDW 12.6 % (11.5-14.5); WBC 8.39 X 10*3/uL (4.50-10.00)
[2024-02-15 17:24] LABS: Prealbumin 16.5 mg/dL (18.0-42.0)
[2024-02-15 17:29] LABS: % Iron Saturation 26.83 (12.00-45.00); Chol/HDL Ratio 3.17 Ratio; Iron 88 UG/DL (50-170); Magnesium 1.9 mg/dL (1.5-2.4); Phosphorus 4.1 mg/dL (2.4-5.1); Total Iron Binding Capacity 328 UG/DL (228-460); VLDL Calculation 15.96 mg/dL (5.00-40.00)
[2024-02-15 17:30] LABS: ALT 11 U/L (8-44); AST 15 U/L (13-35); Albumin 4.1 g/dL (3.8-4.9); Albumin/Globulin Ratio 1.58 Ratio (1.60-3.17); Alkaline Phosphatase 120 U/L (41-126); BUN/Creat Ratio 13.14 Ratio (12.00-20.00); Blood Urea Nitrogen 9.2 mg/dL (9.0-27.0); Carbon Dioxide 23.9 mmol/L (21.6-31.8); Chloride 105 mmol/L (96-109); Ferritin 78.3 ng/mL (10.0-291.0); Globulin 2.6 g/dL (1.6-3.3); Glucose 93 mg/dL (70-110); Potassium 4.1 mmol/L (3.5-5.5); Sodium 140 mmol/L (135-145); Total Bilirubin 0.4 mg/dL (0.3-1.2); Total Protein 6.7 g/dL (6.2-8.2)
== END | disposition home or self-care (01) ==
LOC: LABWHC1 07:39
PROVIDERS: ATTEND Surgery Plastic and Reconstructive Surgery
DX: E66.01 Morbid (severe) obesity due to excess calories (principal); D50.8 Other iron deficiency anemias; K91.2 Postsurgical malabsorption, not elsewhere classified; E44.0 Moderate protein-calorie malnutrition; E44.1 Mild protein-calorie malnutrition; E45 Retarded development following protein-calorie malnutrition; E55.9 Vitamin D deficiency, unspecified; K74.1 Hepatic sclerosis; N19 Unspecified kidney failure; T56.894A Toxic effect of other metals, undetermined, initial encounter; K50.90 Crohn's disease, unspecified, without complications
CPT/HCPCS: 36415; 80053; 80061; 80307; 80323; 82306; 82525; 82607; 82728; 82746; 83036; 83540; 83550; 83735; 83970; 84100; 84134; 84255; 84425; 84443; 84590; 84630; 85027; 85610; 85730

== ENCOUNTER 2024-03-17 08:01 | Day surgery (SDC) | payer BC, OTHER ==
[2024-03-13 10:30] VITALS: BMI 40.7
--- NOTE | 2024-03-17 07:58 | P.GSHP ---
History of Present Illness H&P Date: 03/17/24 CHIEF COMPLAINT: GERD HISTORY OF PRESENT ILLNESS: The patient is a 43-year-old female who presents reports gastroesophageal reflux disease. Upper endoscopy was offered for further evaluation and management. PAST MEDICAL HISTORY: Please see list. PAST SURGICAL HISTORY: Please see list. MEDICATIONS: Please see list. ALLERGIES: Please see list. SOCIAL HISTORY: No illicit drug use FAMILY HISTORY: No reports of Crohn disease or ulcerative colitis. REVIEW OF ORGAN SYSTEMS: CONSTITUTIONAL: No reports of fevers or chills. GI: Denies any blood in stools or constipation. PHYSICAL EXAM: VITAL SIGNS: Stable GENERAL: Well-developed and pleasant in no acute distress. HEENT: No scleral icterus. Extraocular movements grossly intact. Moist buccal mucosa. NECK: Supple without lymphadenopathy. CHEST: Unlabored respirations. Equal bilateral excursions. CARDIOVASCULAR: Regular rate and rhythm. Distal 2+ pulses. ABDOMEN: Soft, nondistended. MUSCULOSKELETAL: No clubbing, cyanosis, or edema. ASSESSMENT: 1. Gastroesophageal reflux disease PLAN: 1. Recommend proceeding with an upper endoscopy Past Medical History Past Medical History: Fibromyalgia Additional Past Medical History / Comment(s): difficulty swallowing History of Any Multi-Drug Resistant Organisms: None Reported Past Surgical History: Appendectomy, Bariatric Surgery, Cholecystectomy, Uterine Ablation Additional Past Surgical History / Comment(s): Gastric Bypass 2008, bilateral submandibular glands removed, uterine repair. Past Anesthesia/Blood Transfusion Reactions: No Reported Reaction Additional Past Anesthesia/Blood Transfusion Reaction / Comment(s): no blood transfusion reaction Smoking Status: Never smoker - Past Family History Father Family Medical History: Deep Vein Thrombosis (DVT) Medications and Allergies Home Medications Medication Instructions Recorded Confirmed Type Amitriptyline HCl 25 mg PO HS 12/12/22 03/13/24 History Cyanocobalamin [Vitamin B-12 1,000 mcg SQ QMONTHLY 12/12/22 03/13/24 History Injection] DULoxetine HCL [Cymbalta] 20 mg PO HS 12/12/22 03/13/24 History Linaclotide [Linzess] 72 mcg PO HS 11/30/23 03/13/24 History Meloxicam [Mobic] 15 mg PO DAILY PRN 11/30/23 03/13/24 History Unk Motrin 1 tab PO DIRECTED PRN 03/29/24 07/11/24 History Unk Multi Vitamin 1 tab PO DAILY 11/30/23 03/13/24 History Allergies Allergy/AdvReac Type Severity Reaction Status Date / Time clindamycin Allergy Dyspnea Verified 03/13/24 10:25 levofloxacin [From Levaquin] Allergy Rash/Hives Verified 03/13/24 10:25
[~2024-03-17 08:01] MED LIST changes: -LACTATED RINGERS 1,000 ML IV SCH; +LIDOCAINE 1% (10MG/ML) FOR IV START INTRADERMA PRN
[2024-03-17] MEDS: IV FLUID CONTINUATION 1,000 ML IV ONE (08:12)
[2024-03-17 08:30] VITALS: TEMP 98
[2024-03-17] MEDS: LACTATED RINGERS 1,000 ML IV SCH (08:31)
[2024-03-17] MEDS ORDERED: PROPOFOL 10 MG/ML 20 ML VIAL IV ONE (08:55)
--- NOTE | 2024-03-17 09:14 | P.PCN ---
Date of Procedure: 03/17/24 Description of Procedure: PREOPERATIVE DIAGNOSES: 1. Gastrointestinal bleeding 2. Epigastric abdominal pain. 3. History of Victorina-en-Y gastric bypass 4. Mobic and ibuprofen use POSTOPERATIVE DIAGNOSES: 1. History of gastrointestinal bleeding 2. Epigastric abdominal pain. 3. History of esophagojejunostomy 4. Adverse event from Mobic and ibuprofen PROCEDURE PERFORMED: Esophagojejunoscopy with biopsies on the jejunum and esophagus SURGEON: Suha Bourgeois MD ANESTHESIA: MAC. INDICATIONS: The patient is a 43-year-old female with prior history of Victorina-en-Y gastric bypass performed at an outside institution. She presents epigastric pain including gastrointestinal bleeding. With her h istory of Victorina-en-Y gastric bypass, upper endoscopy was offered for further evaluation and management. Benefits and risks described. Informed consent was obtained. DESCRIPTION: Patient was brought to the endoscopy suite and laid in the left lateral decubitus position. After adequate IV sedation, a bite block was placed. An Olympus gastroscope was passed along the posterior oropharynx down to the distal esophagus where the squamocolumnar junction was found at approximately 35 cm from the incisors. The gastric pouch was absent with immediate entry into the anastomosis of the esophagojejunostomy. Biopsies obtained along the esophagus and jejunum as the gastric pouch was absent confirming a esophagojejunostomy. GI tract was decompressed. The patient tolerated procedure well. FINDINGS: 1. No acute anastomotic bleeding 2. No foreign body found along the anastomosis. 3. No elongated jejunal blind pouch. 4. Squamocolumnar junction at 35 cm from the incisors. 5. Anastomosis at 40 cm from the incisors. 6. Absent gastric pouch consistent with esophagojejunostomy PLAN: 1. Avoid all NSAIDs due to recent GI bleed Plan - Discharge Summary Discharge Rx Participant: No New Discharge Prescriptions: Continue DULoxetine HCL [Cymbalta] 20 mg PO HS Cyanocobalamin [Vitamin B-12 Injection] 1,000 mcg SQ QMONTHLY Amitriptyline HCl 25 mg PO HS Unk Multi Vitamin 1 tab PO DAILY Linaclotide [Linzess] 72 mcg PO HS Discontinued Meloxicam [Mobic] 15 mg PO DAILY PRN PRN Reason: Pain Unk Motrin 1 tab PO DIRECTED PRN PRN Reason: Pain Discharge Medication List Amitriptyline HCl 25 mg PO HS 12/12/22 [History] Cyanocobalamin [Vitamin B-12 Injection] 1,000 mcg SQ QMONTHLY 12/12/22 [History] DULoxetine HCL [Cymbalta] 20 mg PO HS 12/12/22 [History] Linaclotide [Linzess] 72 mcg PO HS 11/30/23 [History] Unk Multi Vitamin 1 tab PO DAILY 11/30/23 [History] Follow up Appointment(s)/Ref[facility] [place] [facility] - 03/26/24 Patient Instructions/Handouts: Gastrointestinal Bleeding (DC), Victorina-en-Y Gastric Bypass (DC) Activity/Diet/Wound Care/Special Instructions: Avoid nonsteroidal anti-inflammatory drugs including Motrin, Mobic, Celebrex, as pirin, ibuprofen, naproxen, Aleve, etc. Discharge Disposition: HOME SELF-CARE
[2024-03-17 09:28] VITALS: PULSE 78
[2024-03-17 09:39] VITALS: BP 110/65; RESP 18
== END 2024-03-17 10:01 | disposition home or self-care (01) ==
LOC: ORWHC2ENDO 08:01
PROVIDERS: ATTEND Surgery Plastic and Reconstructive Surgery
DX: K21.01 Gastro-esophageal reflux disease with esophagitis, with bleeding (principal); M79.7 Fibromyalgia; Z88.1 Allergy status to other antibiotic agents; Z90.49 Acquired absence of other specified parts of digestive tract; Z98.84 Bariatric surgery status; Z79.1 Long term (current) use of non-steroidal anti-inflammatories (NSAID); Z79.899 Other long term (current) drug therapy
CPT/HCPCS: 81025; 88305; 43239; J2704

== ENCOUNTER → 2024-05-07 | Outpatient (CLI) | payer BC, OTHER ==
[2024-05-07 09:37] LABS: INR 0.9 (<1.2); Partial Thromboplastin Time 24.4 sec (22.0-30.0); Prothrombin Time 10.3 sec (10.0-12.5)
[2024-05-07 15:27] LABS: HCT 42.3 % (37.2-46.3); HGB 13.8 g/dL (12.0-15.0); MCH 30.1 pg (27.0-32.0); MCHC 32.6 g/dL (32.0-37.0); MCV 92.4 FL (80.0-97.0); Mean Platelet Volume 10.5 FL (9.5-12.2); NRBC Per 100 WBC 0 X 10*3/uL (0.00-0.01); Platelet Count 419 X 10*3/uL (140-440); RBC 4.58 X 10*6/uL (4.10-5.20); RDW 12.5 % (11.5-14.5); WBC 9.55 X 10*3/uL (4.50-10.00)
[2024-05-07 15:42] LABS: Prealbumin 14.5 mg/dL (18.0-42.0)
[2024-05-07 16:07] LABS: % Iron Saturation 28.57 (12.00-45.00); ALT 14 U/L (8-44); AST 16 U/L (13-35); Albumin 4.3 g/dL (3.8-4.9); Albumin/Globulin Ratio 1.65 Ratio (1.60-3.17); Alkaline Phosphatase 124 U/L (41-126); BUN/Creat Ratio 14.67 Ratio (12.00-20.00); Blood Urea Nitrogen 8.8 mg/dL (9.0-27.0); Chloride 104 mmol/L (96-109); Chol/HDL Ratio 3.16 Ratio; Ferritin 75.7 ng/mL (10.0-291.0); Globulin 2.6 g/dL (1.6-3.3); Glucose 93 mg/dL (70-110); Iron 90 UG/DL (50-170); LDL Cholesterol,Calculated 93.9 mg/dL (0.0-131.0); Magnesium 1.8 mg/dL (1.5-2.4); Phosphorus 3.6 mg/dL (2.4-5.1); Potassium 4.1 mmol/L (3.5-5.5); Sodium 140 mmol/L (135-145); Total Bilirubin 0.3 mg/dL (0.3-1.2); Total Iron Binding Capacity 315 UG/DL (228-460); Total Protein 6.9 g/dL (6.2-8.2); VLDL Calculation 16.18 mg/dL (5.00-40.00)
[2024-05-08 11:25] LABS: Zinc, Serum 77 ug/dL (60-130)
[2024-05-09 06:16] LABS: Vitamin A 25 ug/dL (38-106)
[2024-05-12 12:15] LABS: Vit B1(Thiamine) 67 ug/L (38-122)
[2024-05-15 22:41] LABS: Selenium 106 mcg/L (63-160)
== END | disposition home or self-care (01) ==
LOC: LABWHC1 07:31
PROVIDERS: ATTEND Surgery Plastic and Reconstructive Surgery
DX: E66.01 Morbid (severe) obesity due to excess calories
CPT/HCPCS: 36415; 80053; 80061; 82306; 82525; 82607; 82728; 82746; 83036; 83540; 83550; 83735; 83970; 84100; 84134; 84255; 84425; 84443; 84590; 84630; 85027; 85610; 85730

== ENCOUNTER → 2025-01-06 | Outpatient (CLI) | payer BC, OTHER ==
[2025-01-06 10:38] LABS: Basophils # (A) 0.03 X 10*3/uL (0.00-0.10); Basophils % (A) 0.4 %; Eosinophils # (A) 0.08 X 10*3/uL (0.04-0.35); Eosinophils % (A) 1.2 %; HCT 41.8 % (37.2-46.3); HGB 13.9 g/dL (12.0-15.0); Lymphocytes # (A) 1.19 X 10*3/uL (0.90-5.00); Lymphocytes % (A) 17.6 %; MCH 29.1 pg (27.0-32.0); MCHC 33.3 g/dL (32.0-37.0); MCV 87.4 FL (80.0-97.0); Mean Platelet Volume 10.4 FL (9.5-12.2); Monocytes # (A) 0.39 X 10*3/uL (0.20-1.00); Monocytes % (A) 5.8 %; NRBC Per 100 WBC 0 X 10*3/uL (0.00-0.01); Neutrophils # (A) 5.04 X 10*3/uL (1.80-7.70); Neutrophils % (A) 74.7 %; Platelet Count 451 X 10*3/uL (140-440); RBC 4.78 X 10*6/uL (4.10-5.20); RDW 12.4 % (11.5-14.5); WBC 6.75 X 10*3/uL (4.50-10.00)
[2025-01-06 11:03] LABS: ALT 13 U/L (8-44); AST 18 U/L (13-35); Albumin/Globulin Ratio 1.29 Ratio (1.60-3.17); Alkaline Phosphatase 142 U/L (41-126); BUN/Creat Ratio 6.17 Ratio (12.00-20.00); Blood Urea Nitrogen 3.7 mg/dL (9.0-27.0); Calcium 8.9 mg/dL (8.7-10.3); Carbon Dioxide 25.4 mmol/L (21.6-31.8); Chloride 102 mmol/L (96-109); Chol/HDL Ratio 3.47 Ratio; Globulin 3.1 g/dL (1.6-3.3); Glucose 79 mg/dL (70-110); LDL Cholesterol,Calculated 102.2 mg/dL (0.0-131.0); Potassium 3.7 mmol/L (3.5-5.5); Sodium 141 mmol/L (135-145); T4, Free (Free Thyroxine) 0.91 ng/dL (0.80-1.80); Total Bilirubin 0.3 mg/dL (0.3-1.2); Total Protein 7.1 g/dL (6.2-8.2)
== END | disposition home or self-care (01) ==
LOC: LABWHC1 07:18
PROVIDERS: ATTEND Nurse Practitioner Family
DX: Z51.81 Encounter for therapeutic drug level monitoring (principal); Z79.899 Other long term (current) drug therapy
CPT/HCPCS: 36415; 80053; 80061; 83036; 84439; 84443; 84481; 85025

== ENCOUNTER → 2025-01-06 | Outpatient (CLI) | payer BC, OTHER ==
--- NOTE | 2025-01-06 07:37 | MM ---
Reason for Exam: Screening (asymptomatic). Last mammogram was performed 1 year(s) and 3 month(s) ago. Patient History: Menarche at age 15. First Full-Term at age 30. Postmenopausal. Risk Values: Peggy 5 year model risk: 0.7%. NCI Lifetime model risk: 9.9%. Prior Study Comparison: 10/06/2022 Bilateral MG 3D screening mammo w/cad, [facility]. 10/11/2023 Bilateral MG 3D screening mammo w/cad, [facility]. Tissue Density: There are scattered areas of fibroglandular density. Findings: Analyzed By CAD. Right breast: There is no suspicious group of microcalcifications or new suspicious mass. Left breast: There is no suspicious group of microcalcifications or new suspicious mass. Overall Assessment: Negative, BI-RAD 1 Management: Screening Mammogram of both breasts in [address] [facility] will attempt to contact patient to return for supplemental views and ultrasound if indicated. Patient should continue monthly self-breast exams. A clinical breast exam by your physician is recommended on an annual basis. This exam should not preclude additional follow-up of suspicious palpable abnormalities. Note on Peggy scores and lifetime risk: 1. A Peggy score greater than 3% is considered moderate risk. If this is the case, consider specialist referral to assess eligibility for a risk reducing agent. 2. If overall lifetime risk for the development of breast cancer is 20% or higher, the patient may qualify for future screening with alternating mammogram and breast MRI. [facility], , 01/06/2025 7:34 AM. Electronically signed and approved by: Ang Rodriguez DO
== END | disposition home or self-care (01) ==
LOC: RADMAMWWP 06:59
PROVIDERS: ATTEND Family Medicine
DX: Z12.31 Encounter for screening mammogram for malignant neoplasm of breast (principal); R92.323 Mammographic fibroglandular density, bilateral breasts; Z78.0 Asymptomatic menopausal state
CPT/HCPCS: 77063; 77067